=== PATIENT | female | born 1945 | race Caucasian/White ===

== ENCOUNTER 2016-05-05 06:12 | Day surgery (SDC) | payer OTHER ==
[2016-05-03 16:49] LABS: HEMATOCRIT 34.3 % (36.0-48.0); HEMOGLOBIN 11.1 g/dL (12.0-16.0)
[2016-05-03 17:03] LABS: BUN (BLOOD UREA NITROGEN) 18 MG/DL (6-23); CALCIUM, SERUM 8.8 MG/DL (8.5-10.4); CHLORIDE, SERUM 104 MMOL/L (96-112); CO2 (CARBON DIOXIDE) 27 MMOL/L (24-34); CREATININE 0.91 MG/DL (0.55-1.02); GFR AFRICAN AMERICAN 75 ML/MIN (>=60); GFR NON AFRICAN AMERICAN 64 ML/MIN (>=60); GLUCOSE, SERUM 100 MG/DL (60-99); POTASSIUM, SERUM 3.3 MMOL/L (3.5-5.3); SODIUM, SERUM 141 MMOL/L (135-148)
[~2016-05-05 06:12] MED LIST: ASAB PO; ESTRACE VAGIN42.5 GM V; FLEX; MAX25 PO; PRAVACHOL40 MG PO; [UNRECOGNIZED DRUG - OTHER]; [UNRECOGNIZED DRUG - OTHER]
== END 2016-05-05 23:59 | disposition home or self-care (01) ==
LOC: MSC 06:12
PROVIDERS: Surgery Plastic and Reconstructive Surgery
PROC: 0J0M0ZZ Alteration of Left Upper Leg Subcutaneous Tissue and Fascia, Open Approach (ICD-10-PCS; 2016-05-05)
PROC: 0J0L0ZZ Alteration of Right Upper Leg Subcutaneous Tissue and Fascia, Open Approach (ICD-10-PCS; 2016-05-05)
PROC: 0J090ZZ Alteration of Buttock Subcutaneous Tissue and Fascia, Open Approach (ICD-10-PCS; principal; 2016-05-05 07:15)
PROC: 0J070ZZ Alteration of Back Subcutaneous Tissue and Fascia, Open Approach (ICD-10-PCS; 2016-05-05 07:15)
DX: E88.1 Lipodystrophy, not elsewhere classified (principal); M19.90 Unspecified osteoarthritis, unspecified site; M79.7 Fibromyalgia; K21.9 Gastro-esophageal reflux disease without esophagitis; T75.3XXA Motion sickness, initial encounter; Z90.89 Acquired absence of other organs; Z90.710 Acquired absence of both cervix and uterus; Z85.41 Personal history of malignant neoplasm of cervix uteri; Z98.890 Other specified postprocedural states; Z86.010 Personal history of colon polyps
CPT/HCPCS: 80048; 85014; 85018; 93005; A9270-GY; J0690; J0735; J2250; J2405; J2710; J3010